=== PATIENT | female | born 1985 | race Caucasian/White ===

== ENCOUNTER 2024-08-13 13:35 | Emergency (ER) | payer BC ==
[~2024-08-13] VITALS: Ht 170.2 cm; Wt 122.9 kg
[2024-08-13] MEDS ORDERED: LOPERAMIDE2 M1 PO (14:24)
[2024-08-13] MEDS ORDERED: BUPROPION HCL150 M2 (14:25)
[2024-08-13] MEDS ORDERED: SERTRALINE HCL25 MG PO (14:25)
[2024-08-13] MEDS ORDERED: SUMATRIPTAN SUC25 MG (14:25)
[2024-08-13] MEDS ORDERED: OMEPRAZOLE MAGN20 M1 PO (14:25)
[2024-08-13] MEDS ORDERED: FLUTICASONE-SA1 EAC4 INH (14:26)
[2024-08-13 16:15] VITALS: BP 122/83
[2024-08-13] MEDS ORDERED: BACTRIM DS TAB1 EACH PO (16:43)
== END 2024-08-13 16:55 | disposition home or self-care (01) ==
LOC: ED 13:35
DX: L02.212 Cutaneous abscess of back [any part, except buttock and flank] (principal); L02.31 Cutaneous abscess of buttock; Z88.8 Allergy status to other drugs, medicaments and biological substances; Z79.899 Other long term (current) drug therapy
CPT/HCPCS: 10060; 99283-25

== ENCOUNTER 2025-02-06 05:49 | Emergency (ER) | payer OTHER, BC ==
[~2025-02-06] VITALS: Ht 170.2 cm; Wt 123.0 kg
[~2025-02-06 05:49] MED LIST: BACTRIM DS TAB1 EACH PO; BUPROPION HCL150 M2; FLUTICASONE-SA1 EAC4 INH; LOPERAMIDE2 M1 PO; OMEPRAZOLE MAGN20 M1 PO; SERTRALINE HCL25 MG PO; SUMATRIPTAN SUC25 MG
[2025-02-06] MEDS ORDERED: diazePAM 10 MG/2 ML SYR IM ONE (06:15)
[2025-02-06] MEDS ORDERED: KETOROLAC TROMETHAMINE 60 MG/2 ML VIAL IM ONE (06:15)
[2025-02-06] MEDS ORDERED: CYCLOBENZAPRINE10 MG PO (07:08)
[2025-02-06] MEDS ORDERED: methylPREDNISolone 4 MG HOME.PACK PO ONE (07:15)
[2025-02-06] MEDS ORDERED: CYCLOBENZAPRINE HCL 10 MG HOME.PACK PO ONE (07:15)
[2025-02-06] MEDS ORDERED: HYDROCODONE BIT/ACETAMINOPHEN 5/325 MG 1 TAB HOME.PACK PO ONE (07:15)
[2025-02-06 07:32] VITALS: BP 127/88
== END 2025-02-06 07:31 | disposition home or self-care (01) ==
LOC: ED 05:49
DX: S39.012A Strain of muscle, fascia and tendon of lower back, initial encounter (principal); W01.0XXA Fall on same level from slipping, tripping and stumbling without subsequent striking against object, initial encounter; Z79.51 Long term (current) use of inhaled steroids; Z79.899 Other long term (current) drug therapy; Z88.8 Allergy status to other drugs, medicaments and biological substances
CPT/HCPCS: 72100; 84703; 96372; 99283; A9270; J1885